=== PATIENT | male | born 1950 | race Caucasian/White ===

== ENCOUNTER 2018-02-07 13:43 | Inpatient (IN) ==
[2018-02-07] MEDS ORDERED: Isovue-370 500 ML INFUS..BTL IV ONE (14:00)
--- NOTE | 2018-02-07 14:10 | Emergency Department Note ---
Disposition Clinical Impression: Swelling of left lower extremity DVT of lower extremity, bilateral Qualifiers: Affected thrombotic vein of extremity: unspecified vein of extremity Chronicity : unspecified Qualified Code(s): I82.403 - Acute embolism and thrombosis of unspecified deep veins of lower extremity, bilateral Disposition: Admitted As Inpatient Condition: Good [facility]errals: [facility] [Non-Partnered Physician] - Forms: ED Satisfaction Letter, Work/School Release Time of Disposition: 16:08 General Adult HPI - General Chief complaint: ED General Medical Stated complaint: DVT Time Seen by Provider: 02/07/18 13:50 Source: patient Mode of arrival: EMS Limitations: no limitations Nursing Notes Reviewed: Yes Vital Signs Reviewed: Yes - History of Present Illness HPI Narrative: Patient is a 67-year-old male that presents the emergency department via EMS from the [place] for DTs and bilateral lower extremities. Patient states that he began having left lower extremity pain approximately one week ago. States that there has been increased swelling and discoloration to the leg over this time period. He states that his pain would be better if he elevated his legs and worse when he gets up and moves around. Patient does state that he has been on anticoagulation for approximately 5 years. States that he had his Eliquis recently changed proximally 2-2-1/2 weeks ago and is now on a different blood thinner but is unable to articulate which blood thinner he is on. Patient denies any blood in his stool or urine at this time. 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 Pain Scale: 6 - Related Data Allergies Allergy/AdvReac Type Severity Reaction Status Date / Time No Known Allergies Allergy Verified 02/07/18 13:50 All systems ED: reviewed and negative except as stated. Cardiovascular: Denies: chest pain Respiratory: Denies: dyspnea Gastrointestinal: Denies: abdominal pain, melena, hematochezia Musculoskeletal: Reports: other (Leg pain) Integumentary: Reports: other (Leg discoloration on the left) Past Medical History - Past Medical History Medical history: Reports: DVT Psychiatric history: Reports: no psych history - Social History Smoking Status: Former smoker Smokeless Tobacco Status: No Alcohol use: Reports: occasionally Drug use: Reports: none Physical Exam - General Limitations: no limitations General appearance: alert, in no apparent distress - Head Head exam: atraumatic, normocephalic - Eye Eye exam: Present: normal appearance, EOMI - Neck Neck exam: Present: normal inspection, full ROM, trachea midline - Respiratory Respiratory exam: Present: normal lung sounds bilaterally. Absent: respiratory distress, wheezes - Cardiovascular Cardiovascular exam: Present: regular rate, normal rhythm, normal heart sounds, +S1, +S2 - Abdominal Exam Abdominal exam: Present: soft, Non-Tender, normal bowel sounds - Extremities Exam Extremities exam: Present: other (Patient has significant swelling in the left lower extremity from the top of the thigh to the toes. Patient has discoloration to the thigh. Patient has pulses via Doppler. Pulses are difficult to palpate due to the swelling but are present on Doppler.) - Neurological Exam Neurological exam: Present: alert, oriented X3 - Psychiatric Psychiatric exam: Present: normal affect, normal mood - Skin Skin exam: Present: warm, dry, intact Course Vital Signs Temperature 98.4 F 02/07/18 13:44 Pulse Rate 71 02/07/18 13:44 Respiratory Rate 16 02/07/18 13:44 Blood Pressure 146/94 02/07/18 13:44 O2 Sat by Pulse Oximetry 95 02/07/18 13:44 Temperature 98.4 F 02/07/18 13:44 Pulse Rate 71 02/07/18 13:44 Respiratory Rate 16 02/07/18 13:44 Blood Pressure 146/94 02/07/18 13:44 O2 Sat by Pulse Oximetry 95 02/07/18 13:44 Oxygen Delivery Oxygen Delivery Room Air Medical Decision Making - MDM Narrative Medical decision making narrative: Due the patient presenting with a DVT from the [facility] and laboratory testing already obtained today I do not feel that was necessary to repeat this laboratory testing prior to admission. Due to the patient having such extensive DVT feel that it is necessary to make sure that this patient does not have a pulmonary embolus. A CTA of the chest will be ordered. We will also obtain an EKG. Patient did have an elevated d-dimer at the [place] of 4.60 within normal reference range of 0.11 to 0.53. Patient's creatinine and GFR was reviewed prior to being sent for his CTA of the chest. CT of the chest was negative for acute pulmonary embolus. I called and spoke with the hospitalist and they have accepted the patient to their service. The patient will be started on standard dose heparin for DVTs. Per request of the hospitalist we will obtain additional laboratory testing including a CBC, chemistry and coagulation studies. The patient be admitted to the hospital at this time. - Medical Records Medical records reviewed: Yes I reviewed the patient's medical records. - Lab Data Lab results reviewed: Yes I reviewed the patient's lab results. - Radiology Data Radiology results reviewed: Yes I reviewed the patient's radiology results. - EKG Data EKG #1 EKG attestation: Yes I reviewed and interpreted this EKG. EKG results narrative: EKG showed a sinus rhythm at a rate of 71 bpm, CA interval of 170, QRS duration 13, QTC of 406. There is no evidence of STEMI on EKG. This was compared to previous EKG on 05/10/11 which showed a sinus rhythm at 78 beats per minute. Attestation Statement - Attestation Attestation: I examined this patient and my medical decision-making was reviewed with the Resident Physician, Dr. Rucker. I agree with the documented findings, disposition and treatment plan as described except to the extent set forth below. Patient is a 67-year-old white male with a prior history of DVTs on anticoagulants who is sent to us from the [facility] today by EMS for newly diagnosed bilateral lower chimneys DVTs. Patient began having symptoms in the left lower extremity approximately one week ago involving significant soft tissue swelling and generalized pain. Patient had no history of falls or trauma. Bilateral lower extremity Dopplers were obtained at the [facility], these percent I report and disc with the patient showing extensive clot burden in both lower extremities worse on the left than the right. Patient reports he does have a IVC filter in place. He is denying any lightheadedness near-syncope or syncopal episodes, no chest pain palpitations or shortness of breath. Patient arrived hemodynamically stable I agree with patient's physical exam findings as documented. He is in no acute distress on arrival. Patient has pulses by Doppler which were obtained due to significant soft tissue swelling. Patient was sent with all of his labs from just prior to arrival including coags , so no repeat labs were drawn from the emergency department. We did obtain an EKG on arrival which was sinus rhythm with no acute changes. Patient was also sent for CTA to rule out PE due to his extensive clot burden. CT scan was negative for PE. Heparin was started on the patient and patient will be admitted for extensive bilateral lower extremity DVTs. Case was discussed with hospitalist who accepted patient for admission and patient has remained hemodynamically stable and in no acute distress on the ED.
[2018-02-07] MEDS ORDERED: *HR* Heparin 5,000 UNIT/ML VIAL IVP PRN (15:55)
[2018-02-07] MEDS ORDERED: *HR* Heparin 5,000 UNIT/ML VIAL IVP ONE (15:55)
[2018-02-07] MEDS ORDERED: 0.9 % Sodium Chloride 1,000 ML ONE (16:37)
[2018-02-07] MEDS: Heparin 25,000 UNIT/500 ML D5W 25,000 UNIT/500 ML BAG IVC SCH (16:40)
[2018-02-07 16:45] LABS: Basophils % 0.2 %; Eosinophils # 0.1 K/mcL (0.0-0.6); Eosinophils % 1.4 %; Hematocrit 38.2 % (37.5-50.1); Hemoglobin 12.8 g/dL (12.9-16.9); Immature Granulocytes % 0.4 % (0-4); Lymphocytes # 1.8 K/mcL (0.6-4.6); Lymphocytes % 17.8 %; Mean Corpuscular HGB Conc 33.5 g/dL (31.6-35.5); Mean Corpuscular Hemoglobin 31.8 pg (28.0-33.3); Mean Corpuscular Volume 94.8 fL (83.0-100.0); Mean Platelet Volume 9.8 fL (9.4-12.4); Monocytes # 0.9 K/mcL (0.0-1.3); Monocytes % 8.3 %; Neutrophils # 7.3 K/mcL (1.6-8.9); Platelet Count 317 K/mcL (140-400); Red Blood Count 4.03 M/mcL (4.19-5.50); Red Cell Distribution Width 12.2 % (11.5-14.5); Segmented Neutrophils % 71.9 %
[2018-02-07 16:56] LABS: BUN/Creatinine Ratio 26 (6-26); Blood Urea Nitrogen 22 mg/dL (8-23); Calcium 9.5 mg/dL (8.6-10.3); Carbon Dioxide 28 mEq/L (23-29); Chloride 100 mEq/L (98-107); Glucose 112 mg/dL (70-105); Osmolality,Calculated 284 (280-300); Potassium 3.8 mEq/L (3.5-5.1); Sodium 135 mEq/L (136-145); eGFR For African Americans > 60 (> 60); eGFR For Non-African Americans > 60 (> 60)
[2018-02-07 16:59] LABS: INR 2.1; Prothrombin Time 23.5 Seconds (9.4-12.1)
[2018-02-07 17:02] LABS: Activated Partial Thrombo Time 30.2 Seconds (26.0-36.0)
[2018-02-07] MEDS ORDERED: traMADol 50 MG TABLET PO PRN (21:44)
[2018-02-07] MEDS ORDERED: Acetaminophen 325 MG TABLET PO PRN (21:44)
[2018-02-07] MEDS ORDERED: Naloxone 0.4 MG/ML INJ IVP PRN (21:44)
--- NOTE | 2018-02-07 21:56 | Internal Med History&Physical ---
<Cas Mar - Last Filed: 02/07/18 22:34> Date of Encounter: 02/07/18 Time of Encounter: 21:48 Internal Medicine - H&P: HPI Admitted From: Home Plans for Post Hospital Care: Home History of present illness: Patient is a 67-year-old male that presents the emergency department via EMS from [place] for DVTs of bilateral lower extremities. Patient states that he began having left lower extremity pain approximately one week ago. States that there has been increased swelling and discoloration to the leg over this time period. He states that his pain would be better if he elevated his legs and worse when he gets up and moves around. Patient does state that he has been on anticoagulation for approximately 5 years. States that he had his Eliquis dose has been increased from 2.5 mg BID to 5 mg BID by a physician of [place] proximally 2 weeks ago. Patient denies any blood in his stool or urine at this time. 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 Patient is very concerned that his leg swelling has not improved with treatment, he also recommended to see the vascular surgery. At the ED, his vital signs were stable. Vital signs revealed cerebellar pleuritic INR at 2.1. He was admitted for further management. Past Med Surg Social Fam HX - Past Medical History Medical history: DVT Psychiatric history: no psych history - Social History Smoking Status: Former smoker Smokeless Tobacco Status: No Alcohol use: occasionally Drug use: none Internal Medicine - H&P: Meds Apixaban [Eliquis] 5 mg PO BID 02/07/18 [History] Calcium Carbonate/Vitamin D3 [Calcium 500-Vit D3 200 Caplet] 2 tab PO DAILY [History] Carbamide Peroxide [Ear Drops] 2 drop OT BID 02/07/18 [History] Cholecalciferol (Vitamin D3) [Vitamin D] 1,000 unit PO DAILY 02/07/18 [History] [place]-3/Dha/Epa/Fish Oil [Fish Oil 1,000 mg Softgel] 2 tab PO DAILY 02/07/18 [ History] Tamsulosin HCl [Flomax] 0.4 mg PO HS 02/07/18 [History] 3 Allergy/AdvReac Type Severity Reaction Status Date / Time No Known Allergies Allergy Verified 02/07/18 13:50 All Systems PM: A 10-system review of systems was performed and is negative for pertinent findings except as documented above in the HPI. Review of systems: REVIEW OF SYSTEMS: CONSTITUTIONAL: No weight loss, fever, chills, weakness or fatigue. HEENT: Eyes: No visual loss, blurred vision, double vision or yellow sclerae. Ears, Nose, Throat: No hearing loss, sneezing, congestion, runny nose or sore throat. SKIN: No rash or itching. CARDIOVASCULAR: No chest pain, chest pressure or chest discomfort. No palpitations or edema. RESPIRATORY: No shortness of breath, cough or sputum. GASTROINTESTINAL: No anorexia, nausea, vomiting or diarrhea. No abdominal pain or blood. GENITOURINARY: No dysuria, urgency, or frequency. NEUROLOGICAL: No headache, dizziness, syncope, paralysis, ataxia, numbness or tingling in the extremities. No change in bowel or bladder control. MUSCULOSKELETAL: see HPI. HEMATOLOGIC: No anemia, bleeding or bruising. LYMPHATICS: No enlarged nodes. No history of splenectomy. PSYCHIATRIC: No history of depression or anxiety. ENDOCRINOLOGIC: No reports of sweating, cold or heat intolerance. No polyuria or polydipsia. - Constitutional Vitals: Temp Pulse Resp BP Pulse Ox 98.4 F 64 16 116/73 98 02/07/18 19:12 02/07/18 19:12 02/07/18 19:12 02/07/18 19:12 02/07/18 19:12 General appearance: Present: A&O X 3 Exam: PHYSICAL EXAMINATION: GENERAL APPEARANCE: The patient is alert, oriented and in no acute distress. HEENT: Head is normocephalic. The sinuses are nontender. Pupils are equal and reactive. The nares are patent. Oropharynx clear without lesions. NECK: Supple without lymphadenopathy. HEART: Regular rate and rhythm. LUNGS: No crackles or wheezes are heard. ABDOMEN: Soft, nontender, nondistended with good bowel sounds heard. Inguinal area is normal. EXTREMITIES: left leg 2+ pitting edema. NEUROLOGICAL: Gross nonfocal. SKIN: Warm and dry without any rash. Internal Med - H&P Results - Labs CBC & Chem 7: 02/07/18 16:20 02/07/18 16:20 - Assessment and plan (1) DVT of lower extremity, bilateral Current Visit: Yes Status: Acute Assessment and plan: 67 male with history of DVT status post IVC filter placement presented with bilateral swelling Legs. He is on adequate this for the last 5 years and has been compliant with medications. His INR at ED was 2.1. - Patient has been adequately treated for DVT, Unclear why he had another DVT on the left leg, new DVT/old DVT? He may need hypercoagulation workup. - He also has IVC filter, CT chest no PE. - He is on heparin drip. I am not sure that Eliquis is the right medication for his DVT. Hold Eliquids for now - We will consult vascular surgery/ Hemotology in the morning. Qualifiers: Affected thrombotic vein of extremity: unspecified vein of extremity Chronicity: unspecified Qualified Code(s): I82.403 - Acute embolism and thrombosis of unspecified deep veins of lower extremity, bilateral (2) BPH (benign prostatic hyperplasia) Current Visit: No Status: Chronic Assessment and plan: -Continue home medication. Qualifiers: Lower urinary tract symptom presence: symptoms absent Qualified Code(s): N40.0 - Benign prostatic hyperplasia without lower urinary tract symptoms - Time Spent With Patient Total time spent is greater than 50% in coordination of care (as documented) at patient's floor/unit and/or counseling patient: Greater than 35 minutes <Tessa Cantrell - Last Filed: 02/07/18 23:46> Date of Encounter: 02/07/18 Internal Medicine - H&P: HPI History of present illness: Mr. Mckinney is a 67 year old male All Systems PM: A 10-system review of systems was performed and is negative for pertinent findings except as documented above in the HPI. - Constitutional Vitals: Temp Pulse Resp BP Pulse Ox 98.4 F 65 16 111/69 96 02/07/18 22:37 02/07/18 22:37 02/07/18 22:37 02/07/18 22:37 02/07/18 22:37 Internal Med - H&P Results - Labs CBC & Chem 7: 02/07/18 16:20 02/07/18 16:20 - Attending Attestation I examined this patient and my medical decision-making was reviewed with the Resident Physician. I agree with the documented findings, disposition and treatment plan as described except to the extent set forth below. - Time Spent With Patient Total time spent is greater than 50% in coordination of care (as documented) at patient's floor/unit and/or counseling patient:
[2018-02-07] MEDS: *HR* Heparin 5,000 UNIT/ML VIAL IVP PRN (23:18)
[2018-02-08 05:36] LABS: Basophils % 0.4 %; Eosinophils # 0.4 K/mcL (0.0-0.6); Eosinophils % 4.1 %; Hemoglobin 11.4 g/dL (12.9-16.9); Immature Granulocytes % 0.6 % (0-4); Lymphocytes % 23.8 %; Mean Corpuscular HGB Conc 33.5 g/dL (31.6-35.5); Mean Corpuscular Hemoglobin 31.3 pg (28.0-33.3); Mean Corpuscular Volume 93.4 fL (83.0-100.0); Mean Platelet Volume 9.9 fL (9.4-12.4); Monocytes # 0.9 K/mcL (0.0-1.3); Monocytes % 10.5 %; Neutrophils # 5.1 K/mcL (1.6-8.9); Platelet Count 260 K/mcL (140-400); Red Blood Count 3.64 M/mcL (4.19-5.50); Red Cell Distribution Width 12.5 % (11.5-14.5); Segmented Neutrophils % 60.6 %
[2018-02-08 06:25] LABS: BUN/Creatinine Ratio 29 (6-26); Blood Urea Nitrogen 25 mg/dL (8-23); Carbon Dioxide 20 mEq/L (23-29); Chloride 103 mEq/L (98-107); Glucose 121 mg/dL (70-105); Osmolality,Calculated 286 (280-300); Potassium 3.6 mEq/L (3.5-5.1); Sodium 135 mEq/L (136-145); eGFR For African Americans > 60 (> 60); eGFR For Non-African Americans > 60 (> 60)
--- NOTE | 2018-02-08 08:17 | Internal Med Progress Note ---
Date of Encounter: 02/08/18 Time of Encounter: 08:14 - Assessment and plan (1) DVT of lower extremity, bilateral Current Visit: Yes Status: Acute Assessment and plan: Bilateral venous [facility]pplers of [facility] on 02[facility]18 revealed RLE nonacute occlusive thrombus in the right femoral right popliteal and occlusive thrombus within the right posterior tibial vein, LLE venous Doppler revealed extensive LLE DVT throughout the left extremity extending superiorly into the common femoral vein Pulses present bilaterally with Doppler. He has IVC filter CTA chest with no PE Hematology/oncology see patient Continue with heparin drip Qualifiers: Affected thrombotic vein of extremity: unspecified vein of extremity Chronicity: unspecified Qualified Code(s): I82.403 - Acute embolism and thrombosis of unspecified deep veins of lower extremity, bilateral (2) BPH (benign prostatic hyperplasia) Current Visit: No Status: Chronic Assessment and plan: Cont home medications Qualifiers: Lower urinary tract symptom presence: symptoms absent Qualified Code(s): N40.0 - Benign prostatic hyperplasia without lower urinary tract symptoms - Time Spent With Patient Total time spent is greater than 50% in coordination of care (as documented) at patient's floor/unit and/or counseling patient: - Subjective Interval history: This patient is new to me, I did review records. Denies any CP or SOB, no complaints of pain in legs. Patient is NPO at this time pending vascular evaluation - Constitutional Vitals: Temp Pulse Resp BP Pulse Ox 97.7 F 53 19 112/69 99 02/08/18 06:47 02/08/18 06:47 02/08/18 06:47 02/08/18 06:47 02/08/18 06:47 General appearance: Present: A&O X 3 - Head Head exam: Present: atraumatic, normocephalic - Eye Eye exam: Present: PERRL, conjuntiva pink, sclera anicteric Pupils: Present: PERRL - Neck Neck exam general surgery: Present: supple, trachea midline. Absent: lymphadenopathy - Respiratory Respiratory exam: Present: CTAB. Absent: accessory muscle use, rales, rhonchi, wheezes - Cardiovascular Cardiovascular exam: Present: RRR, +S1, +S2. Absent: diastolic murmur, gallop, rubs, systolic murmur - GI/Abdominal GI/Abdominal exam: Present: normal bowel sounds, soft, no peritoneal signs. Absent: distended, tenderness - Extremities Exam Extremities exam: Present: pedal edema, warm, radial pulses palpable and symmetrical. Absent: calf tenderness, cyanotic - Neurological Exam Neurological exam: Present: CN II-XII intact, oriented X3, no focal deficits. Absent: pronater drift, facial droop, speech deficit - Skin Skin exam: Present: dry, intact Internal Medicine: Result - Labs CBC & Chem 7: 02/08/18 05:17 02/08/18 05:17 Labs: Short CBC 02/08/18 Range/Units 05:17 WBC 8.5 (4.3-11.1) K/mcL Hgb 11.4 L (12.9-16.9) g/dL Hct 34.0 L (37.5-50.1) % Plt Count 260 (140-400) K/mcL Neutrophils # 5.1 (1.6-8.9) K/mcL BMP 02/08/18 05:17 Sodium 135 L Potassium 3.6 Chloride 103 Carbon Dioxide 20 L BUN 25 H Creatinine 0.86 Glucose 121 H Calcium 9.0 - ABG Interpretation ABG results: PT/INR, D-dimer PT 23.5 Seconds (9.4-12.1) H 02/07/18 16:20 Consult Discharge Plan - Plan Referrals: CHARU,PCP [Primary Care Provider] - 02/21/18 11:30 am
[2018-02-08] MEDS: Cholecalciferol (D-3) 1,000 UNIT TABLET PO SCH (08:54)
[2018-02-08] MEDS: Calcium 500-Vit D3 PO SCH (08:55)
[2018-02-08] MEDS: Heparin 25,000 UNIT/500 ML D5W 25,000 UNIT/500 ML BAG IVC SCH (12:44)
[2018-02-08] MEDS: *HR* Heparin 5,000 UNIT/ML VIAL IVP PRN ×2 (12:46→20:19)
--- NOTE | 2018-02-08 14:43 | Oncology Inp Consult Note ---
<Chelsea Fuller - Last Filed: 02/08/18 14:32> Date of Encounter: 02/08/18 Time of Encounter: 13:00 Assessment and Plan (1) DVT of lower extremity, bilateral Status: Acute Assessment and plan: Bilateral venous dopplers at [facility] on 02/07/18 revealed RLE non-occlusive thrombus in the right femoral, right popliteal and occlusive thrombus within the right posterior tibial vein, LLE venous doppler revealed extensive LLE DVT throughout the left extremity extending superiorly into the common femoral vein. History as detailed in HPI, it is unclear as to whether patient has failed Eliquis therapy given his recent hospitalization with reported missed doses during this time. Dr. Reno discussed options which include keeping Eliquis at increased dosage or changing to Xarelto therapy with similar mechanism of action. Recommendation made to change therapy to Xarelto 15 mg twice daily with food for 21 days followed by 20 mg once daily with food. Primary team may change therapy when desired. Kidney function normal at this time. Given patients history of multiple provoked DVT's, he would benefit from indefinite anticoagulation. Thrombophilia workup may be discussed on an outpatient basis if desired, positive or negative thrombophilia workup would not necessary change treatment goal considering patient needing AC lifelong as tolerated at this time. He was given the option to follow up with [place] assistant plant manager but already established with [facility] assistant plant manager in [place]. Please refer to Dr. Reno's attestation below for additional details. Qualifiers: Affected thrombotic vein of extremity: unspecified vein of extremity Chronicity: unspecified Qualified Code(s): I82.403 - Acute embolism and thrombosis of unspecified deep veins of lower extremity, bilateral - Data of Consult Patient: new to practice Consult date: 02/08/18 Requesting Physician: Quique Lindsay MD [facility] - Consult Narrative Reason for consult: BLE DVT History of present illness: Mr. 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 Patient reports history of at least 3 episodes of provoked RLE DVT following hip surgeries and no prior history of LLE DVT. He has been on AC for about 5 years, he had taken coumadin some time during this period as well. Patient does have a Sims filter placed years ago. He reports recent hospitalization a few weeks ago at the [facility] for UTI and weakness. He reports he had missed doses of his Eliquis during this time. His history is slightly unclear from this point but apparently this led to questioning of his dosage as he was taking decreased dose of 2.5 mg PO BID. He apparently followed up with a assistant plant manager following his hospitalization who recommended he be placed on Eliquis 5 mg PO BID. He at this time did not have any new PE or DVT. Shortly following his dosage increase he began experiencing LLE pain and edema which eventually led to his presentation to [facility]. Bilateral venous dopplers at [facility] on revealed RLE non-occlusive thrombus in the right femoral, right popliteal and occlusive thrombus within the right posterior tibial vein, LLE venous doppler revealed extensive LLE DVT throughout the left extremity extending superiorly into the common femoral vein. He was subsequently transferred to [facility] for further care. Chest CTA with no evidence of PE. He is on a heparin gtt Past Med Surg Social Fam HX - Past Medical History Medical history: DVT Psychiatric history: no psych history - Social History Smoking Status: Former smoker Smokeless Tobacco Status: No Alcohol use: occasionally Drug use: none Medications and Allergies Apixaban [Eliquis] 5 mg PO BID 02/07/18 [History] Calcium Carbonate/Vitamin D3 [Calcium 500-Vit D3 200 Caplet] 2 tab PO DAILY [History] Carbamide Peroxide [Ear Drops] 2 drop OT BID 02/07/18 [History] Cholecalciferol (Vitamin D3) [Vitamin D] 1,000 unit PO DAILY 02/07/18 [History] [place]-3/Dha/Epa/Fish Oil [Fish Oil 1,000 mg Softgel] 2 tab PO DAILY 02/07/18 [ History] Tamsulosin HCl [Flomax] 0.4 mg PO HS 02/07/18 [History] 3 Allergy/AdvReac Type Severity Reaction Status Date / Time No Known Allergies Allergy Verified 02/07/18 13:50 Constitutional: Present: fatigue, weakness. Absent: anorexia, chills, fever(s) Eyes: Absent: change in vision Nose, mouth and throat: Absent: dysphagia Cardiovascular: Absent: chest pain, irregular heart rhythm, palpitations Respiratory: Absent: cough, dyspnea, hemoptysis Gastrointestinal: Absent: abdominal pain, change in bowel habits, hematemesis, melena, nausea Additional comments: denies dysuria or hematuria Musculoskeletal: Present: muscle weakness Integumentary: Absent: wounds Neurological: Absent: focal weakness, frequent falls Hematologic/Lymphatic: Present: as per HPI Oncology - Exam - Constitutional Vitals: Temp Pulse Resp BP Pulse Ox 98.1 F 58 18 129/87 98 02/08/18 11:24 02/08/18 11:24 02/08/18 11:24 02/08/18 11:24 02/08/18 11:24 General appearance: cooperative, no acute distress, no febrile - Head Head exam: Present: atraumatic - ENT ENT exam: Present: mucous membranes moist - Respiratory Respiratory exam: Present: CTAB. Absent: respiratory distress - Cardiovascular Cardiovascular exam: Present: RRR, +S1, +S2 - GI/Abdominal GI/Abdominal exam: Present: normal bowel sounds, soft. 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 - Neurological Exam Neurological exam: Present: alert, oriented X3, no focal deficits, strengths equal and symetr throughout - Psychiatric Psychiatric exam: Present: normal affect, normal mood - Skin Skin exam: Present: dry, intact, normal color, warm Oncology - Results Labs: Short CBC 02/08/18 Range/Units 05:17 WBC 8.5 (4.3-11.1) K/mcL Hgb 11.4 L (12.9-16.9) g/dL Hct 34.0 L (37.5-50.1) % Plt Count 260 (140-400) K/mcL Neutrophils # 5.1 (1.6-8.9) K/mcL BMP 02/08/18 05:17 Sodium 135 L Potassium 3.6 Chloride 103 Carbon Dioxide 20 L BUN 25 H Creatinine 0.86 Glucose 121 H Calcium 9.0 Consult Discharge Plan - Plan [facility]errals: [facility] [Primary Care Provider] - 02/21/18 11:30 am <Mervin Bell - Last Filed: 02/08/18 16:32> Date of Encounter: 02/08/18 - Data of Consult Requesting Physician: Quique Lindsay MD Primary Care Provider: [facility] - Consult Narrative History of present illness: Patient may be switched to xarelto, patient reports worse swelling after eliquis was increased to 5 BID. He was hospitalized with UTI and also reports missing few doses of eliquis prior to his doctors switching him to 5 mg BID I examined this patient and my medical decision-making was reviewed with the Advanced Practice Nurse, Chelsea Fuller. I agree with the documented findings, disposition and treatment plan as described except to the extent set forth below. Oncology - Exam - Constitutional Vitals: Temp Pulse Resp BP Pulse Ox 97.8 F 61 18 119/73 96 02/08/18 15:21 02/08/18 15:21 02/08/18 15:21 02/08/18 15:21 02/08/18 15:21 Oncology - Results Labs: Short CBC 02/08/18 Range/Units 05:17 WBC 8.5 (4.3-11.1) K/mcL Hgb 11.4 L (12.9-16.9) g/dL Hct 34.0 L (37.5-50.1) % Plt Count 260 (140-400) K/mcL Neutrophils # 5.1 (1.6-8.9) K/mcL BMP 02/08/18 05:17 Sodium 135 L Potassium 3.6 Chloride 103 Carbon Dioxide 20 L BUN 25 H Creatinine 0.86 Glucose 121 H Calcium 9.0
[2018-02-09] MEDS: Heparin 25,000 UNIT/500 ML D5W 25,000 UNIT/500 ML BAG IVC SCH (01:33)
[2018-02-09 02:15] LABS: Basophils % 0.3 %; Eosinophils # 0.4 K/mcL (0.0-0.6); Eosinophils % 4.2 %; Hematocrit 34.4 % (37.5-50.1); Hemoglobin 11.7 g/dL (12.9-16.9); Immature Granulocytes % 0.6 % (0-4); Lymphocytes # 2.6 K/mcL (0.6-4.6); Lymphocytes % 29.7 %; Mean Corpuscular Hemoglobin 31.5 pg (28.0-33.3); Mean Corpuscular Volume 92.5 fL (83.0-100.0); Mean Platelet Volume 9.5 fL (9.4-12.4); Monocytes # 0.8 K/mcL (0.0-1.3); Monocytes % 9.7 %; Neutrophils # 4.8 K/mcL (1.6-8.9); Platelet Count 314 K/mcL (140-400); Red Blood Count 3.72 M/mcL (4.19-5.50); Red Cell Distribution Width 12.5 % (11.5-14.5); Segmented Neutrophils % 55.5 %
[2018-02-09 02:34] LABS: BUN/Creatinine Ratio 21 (6-26); Blood Urea Nitrogen 17 mg/dL (8-23); Calcium 8.9 mg/dL (8.6-10.3); Carbon Dioxide 27 mEq/L (23-29); Chloride 104 mEq/L (98-107); Glucose 117 mg/dL (70-105); Osmolality,Calculated 289 (280-300); Potassium 3.6 mEq/L (3.5-5.1); Sodium 138 mEq/L (136-145); eGFR For African Americans > 60 (> 60); eGFR For Non-African Americans > 60 (> 60)
[2018-02-09] MEDS: Cholecalciferol (D-3) 1,000 UNIT TABLET PO SCH (09:10)
[2018-02-09] MEDS: Calcium 500-Vit D3 PO SCH (09:11)
[2018-02-09] MEDS: *HR* Rivaroxaban 15 MG TABLET PO SCH ×2 (12:25→20:09)
--- NOTE | 2018-02-09 15:11 | Vascular/Endovasc Consult Note ---
Date of Encounter: 02/09/18 Time of Encounter: 14:15 Assessment and Plan (1) DVT of lower extremity, bilateral Status: Acute The pathophsyiology and natural history of deep vein thrombosis was discussed with the patient and all questions were answered. The patient has had recurrent deep vein thrombosis during the last 5 years. He has an inferior vena cava filter in place. He was previously treated with Coumadin and then was transitioned to Eliquis. He reports that he ercently missed 2 doses of Eliquis and has now developed an acute deep vein thrombosis. He has had significant improvement since admission. Agree with Xarelto for anticaogulation. He has no signs or symptoms of phelgmasia or limb compromise. There is no indication for thrombectomy at this time. Qualifiers: Affected thrombotic vein of extremity: unspecified vein of extremity Chronicity: unspecified Qualified Code(s): I82.403 - Acute embolism and thrombosis of unspecified deep veins of lower extremity, bilateral - History of Present Illness Consult date: 02/09/18 Requesting physician: [facility] Consult reason: Recurrent deep vein thrombosis Chief complaint: Leg pain and swelling History of present illness: Mr. Mckinney is a 67 year old male with a history of recurrent venous thromboembolism. He previously developed deep vein thrmobosis approximately 5 years ago. He states that he was placed on Coumadin, but was later switched to Eliquis. He also reports that he had an IVC filter placed. The patient reports that he developed a urinary tract infectino and was seen at the [facility]. He reports that his anticoagulation was held for two doses and then he developed left leg pain and swelling. He underwent a venous duplex and was found to have an acute DVT. He was admitted to [facility] and start on heparin. The patient reoprts that his leg is now feeling better and his swelling has decreased. He denies any chest pain or shortness of breath. Past Med Surg Social Fam HX - Past Medical History Medical history: DVT Psychiatric history: no psych history - Social History Smoking Status: Former smoker Smokeless Tobacco Status: No Alcohol use: occasionally Drug use: none - Family History Mother Living Status: Hx Family Cardiac Disorders: Yes Father Living Status: Hx Family Cardiac Disorders: Yes Medications and Allergies Calcium Carbonate/Vitamin D3 [Calcium 500-Vit D3 200 Caplet] 2 tab PO DAILY [History] Carbamide Peroxide [Ear Drops] 2 drop OT BID 02/07/18 [History] Cholecalciferol (Vitamin D3) [Vitamin D3] 1,000 unit PO DAILY 02/07/18 [History] [place]-3/Dha/Epa/Fish Oil [Fish Oil 1,000 mg Softgel] 2 tab PO DAILY 02/07/18 [ History] Tamsulosin HCl [Flomax] 0.4 mg PO HS 02/07/18 [History] Rivaroxaban [Xarelto] 15 mg PO BID #40 tablet 02/10/18 [Rx] Rivaroxaban [Xarelto] 15 mg PO BID 20 Days #40 tablet 02/10/18 [Rx] Rivaroxaban [Xarelto] 20 mg PO DAILY #60 tablet 02/10/18 [Rx] 3 Allergy/AdvReac Type Severity Reaction Status Date / Time No Known Allergies Allergy Verified 02/07/18 13:50 All Systems Review: The remainder of the systems were reviewed and are negative - Constitutional Constitutional: no chills, no fever(s) - Cardiovascular Cardiovascular: no chest pain at rest, no dyspnea at rest - Gastrointestinal Gastrointestinal: no abdominal pain - Neurological Neurological: no focal weakness, no numbness Exam Vital Signs, Last 4 Hours Temp Pulse Resp BP Pulse Ox 02/09/18 14:43 97.6 F 86 16 157/71 97 02/09/18 14:39 98.5 F 90 16 121/75 98 02/09/18 11:15 98.1 F 74 110/71 97 General: Present: Conversant, No Apparent Distress HEENT: Present: Atraumatic, Trachea midline, Pupils equal Neck: Absent: JVD, Lymphadenopathy, Left Carotid bruit, Right Carotid bruit Cardiac: Present: Reg Rate and Rhythm, Normal S1 and S2 Lungs: Present: Normal Breath Sounds, No Wheeze, Rales, Rhonchi Neuro: Present: Alert and responsive, No focal deficits noted, Cranial nerves grossly intact, Motor nerves grossly intact, Sensory nerves grossly intact Abdomen: Present: Soft, Non-tender. Absent: Masses Vascular: Present: Normal capillary refill, Pulse, normal, Edema (1+ left lower extremity edema). Absent: Clubbing, Cyanosis Skin: Present: No rashes noted on visualized skin Consult Discharge Plan - Plan Instructions: Peripheral Vascular Disorders (DC) [facility]errals: [facility] [Primary Care Provider] - 02/21/18 11:30 am Prescriptions: Rivaroxaban [Xarelto] 15 mg PO BID #40 tablet Rivaroxaban [Xarelto] 15 mg PO BID 20 Days #40 tablet Rivaroxaban [Xarelto] 20 mg PO DAILY #60 tablet
--- NOTE | 2018-02-09 21:39 | Internal Med Progress Note ---
Date of Encounter: 02/09/18 Time of Encounter: 15:00 - Assessment and plan (1) DVT of lower extremity, bilateral Current Visit: Yes Status: Acute Assessment and plan: [facility] on [facility]18 revealed RLE nonacute occlusive thrombus in the right femoral right popliteal and occlusive thrombus within the right posterior tibial vein, LLE venous Doppler revealed extensive LLE DVT throughout the left extremity extending superiorly into the common femoral vein Pulses present bilaterally with Doppler. He has IVC filter CTA chest with no PE Hematology/oncology see patient- Heparin gtt stopped and started on Xarelto 15 mg BID per recommendations Seen by vascular surgery no surgical intervention at this time Qualifiers: Affected thrombotic vein of extremity: unspecified vein of extremity Chronicity: unspecified Qualified Code(s): I82.403 - Acute embolism and thrombosis of unspecified deep veins of lower extremity, bilateral (2) BPH (benign prostatic hyperplasia) Current Visit: No Status: Chronic Assessment and plan: Cont home medications Qualifiers: Lower urinary tract symptom presence: symptoms absent Qualified Code(s): N40.0 - Benign prostatic hyperplasia without lower urinary tract symptoms - Time Spent With Patient Total time spent is greater than 50% in coordination of care (as documented) at patient's floor/unit and/or counseling patient: - Subjective Interval history: Patient was seen at bedside and examined earlier today. He denies any pain or discomfort, he feels that his swelling has improved however request to stay overnight, because he feels unsafe walking dt swelling. Will have PT OT eval patient He agrees with plan and will be discharged in am - Constitutional Vitals: Temp Pulse Resp BP Pulse Ox 99.0 F 83 16 133/78 98 02/09/18 18:28 02/09/18 18:28 02/09/18 18:28 02/09/18 18:28 02/09/18 18:28 General appearance: Present: A&O X 3 - Head Head exam: Present: atraumatic, normocephalic - Eye Eye exam: Present: PERRL, conjuntiva pink, sclera anicteric Pupils: Present: PERRL - Neck Neck exam general surgery: Present: supple, trachea midline. Absent: lymphadenopathy - Respiratory Respiratory exam: Present: CTAB. Absent: accessory muscle use, rales, rhonchi, wheezes - Cardiovascular Cardiovascular exam: Present: RRR, +S1, +S2. Absent: diastolic murmur, gallop, rubs, systolic murmur - GI/Abdominal GI/Abdominal exam: Present: normal bowel sounds, soft, no peritoneal signs. Absent: distended, tenderness - Extremities Exam Extremities exam: Present: pedal edema, warm, radial pulses palpable and symmetrical. Absent: calf tenderness, cyanotic - Neurological Exam Neurological exam: Present: CN II-XII intact, oriented X3, no focal deficits. Absent: pronater drift, facial droop, speech deficit - Skin Skin exam: Present: dry, intact Internal Medicine: Result - Labs CBC & Chem 7: 02/09/18 01:54 02/09/18 01:54 Labs: Short CBC 02/09/18 Range/Units 01:54 WBC 8.6 (4.3-11.1) K/mcL Hgb 11.7 L (12.9-16.9) g/dL Hct 34.4 L (37.5-50.1) % Plt Count 314 (140-400) K/mcL Neutrophils # 4.8 (1.6-8.9) K/mcL BMP 02/09/18 01:54 Sodium 138 Potassium 3.6 Chloride 104 Carbon Dioxide 27 BUN 17 Creatinine 0.80 Glucose 117 H Calcium 8.9 - ABG Interpretation ABG results: PT/INR, D-dimer PT 23.5 Seconds (9.4-12.1) H 02/07/18 16:20 Consult Discharge Plan - Plan [facility]errals: [facility] [Primary Care Provider] - 02/21/18 11:30 am
--- NOTE | 2018-02-10 08:22 | Discharge Summary ---
- NOTES TO OUTPATIENT PROVIDER Notes to Outpatient Provider: Follow up with hematology and PCP- Xaralto 15mg BIDfor 21 days then Xarelto 20 mg daily Date of Encounter: 02/10/18 Time of Encounter: 08:19 - Discharge Diagnosis (1) DVT of lower extremity, bilateral Priority: Primary Status: Acute Qualifiers: Affected thrombotic vein of extremity: unspecified vein of extremity Chronicity: unspecified Qualified Code(s): I82.403 - Acute embolism and thrombosis of unspecified deep veins of lower extremity, bilateral (2) BPH (benign prostatic hyperplasia) Priority: Secondary Status: Chronic Qualifiers: Lower urinary tract symptom presence: symptoms absent Qualified Code(s): N40.0 - Benign prostatic hyperplasia without lower urinary tract symptoms Hospital course: Mr. Mckinney is a 67 year old male past medical hx of multiple BLE DVT He has been on AC for about 5 yrs He does have a nani filter. He is presently on Eliquis [facility] He reports he had missed some doses of Eliquis during this stay. He also was taking a decreased dose of Eliquis of 2.5mg BID. He follows with hematology through [facility] who increased dose to 5mg BID. He did not have a PE or DVT during the dosage change. Some time after change he began to experience bilateral lower leg swelling and pain which he went to the [facility] for eval.Bilateral venous dopplers at [facility] on 02/07/18 revealed RLE non-occlusive thrombus in the right femoral, right popliteal and occlusive thrombus within the right posterior tibial vein, LLE venous doppler revealed extensive LLE DVT throughout the left extremity extending superiorly into the common femoral vein. He was subsequently transferred to [facility] for further care. Chest CTA with no evidence of PE. Placed on a heparin gtt- he was seen by hematology and recommended Xarelto 15 mg twice a day for 21 days then Xarelto 20 mg po daily with food. He was also seen by vascular surgery who did not recommend surgery and agreed with Xarelto. He was evaluated by PT/OT dt difficulty ambulating and recommend home health. He was transitioned form heparin to Xarelto. He is to follow up with PCP and hematology which patient verbalized understanding. I reviewed Xarelto instructions with him which he verbalized understanding He is hemodynamically stable at this time and ready for discharge Discharge discussed with: patient - Time Spent with Patient Total time spent providing and/or coordinating discharge services: - Discharge Medications Prescriptions: Rivaroxaban [Xarelto] 15 mg PO BID #40 tablet Rivaroxaban [Xarelto] 15 mg PO BID 20 Days #40 tablet Rivaroxaban [Xarelto] 20 mg PO DAILY #60 tablet Home Medications: Calcium Carbonate/Vitamin D3 [Calcium 500-Vit D3 200 Caplet] 2 tab PO DAILY [History] Carbamide Peroxide [Ear Drops] 2 drop OT BID 02/07/18 [History] Cholecalciferol (Vitamin D3) [Vitamin D3] 1,000 unit PO DAILY 02/07/18 [History] [place]-3/Dha/Epa/Fish Oil [Fish Oil 1,000 mg Softgel] 2 tab PO DAILY 02/07/18 [ History] Tamsulosin HCl [Flomax] 0.4 mg PO HS 02/07/18 [History] Rivaroxaban [Xarelto] 15 mg PO BID #40 tablet 02/10/18 [Rx] Rivaroxaban [Xarelto] 15 mg PO BID 20 Days #40 tablet 02/10/18 [Rx] Rivaroxaban [Xarelto] 20 mg PO DAILY #60 tablet 02/10/18 [Rx] Allergies/Adverse Reactions: 3 Allergy/AdvReac Type Severity Reaction Status Date / Time No Known Allergies Allergy Verified 02/07/18 13:50 Date of admission: 02/08/18 19:22 Primary care physician: [facility]CP [facility] Consults: 02/09/18 08:54 Consult to Physical Therapy [CONS] Routine Comment: Evaluate, develop and implement POC Reason for Consult: has swelling in legs difficulty ambulating Does patient have active BEDREST order?: No Is patient medically & hemodynamically stable?: Yes Patient assessed for mobility or mobilized this visit?: Yes 02/09/18 08:56 Consult to Occupational Therapy [CONS] Routine Comment: Evaluate, develop and implement POC Reason for Consult: swelling Does patient have active BEDREST order?: No Is patient medically & hemodynamically stable?: Yes Patient assessed for mobility or mobilized this visit?: Yes 02/09/18 08:59 Consult to [employer] [CONS] Routine Reason for SW Consult: discharge planning Discharging clinician: Leila Snell Anticipated date of discharge: 04/27/18 - Constitutional Vitals: Temp Pulse Resp BP Pulse Ox 98.3 F 64 17 125/74 97 02/10/18 06:50 02/10/18 06:50 02/10/18 06:50 02/10/18 06:50 02/10/18 06:50 General appearance: Present: A&O X 3 - Head Head exam: Present: atraumatic, normocephalic - Eye Eye exam: Present: PERRL, conjuntiva pink, sclera anicteric Pupils: Present: PERRL - Neck Neck exam general surgery: Present: supple, trachea midline. Absent: lymphadenopathy - Respiratory Respiratory exam: Present: CTAB. Absent: accessory muscle use, rales, rhonchi, wheezes - Cardiovascular Cardiovascular exam: Present: RRR, +S1, +S2. Absent: diastolic murmur, gallop, rubs, systolic murmur - GI/Abdominal GI/Abdominal exam: Present: normal bowel sounds, soft, no peritoneal signs. Absent: distended, tenderness - Extremities Exam Extremities exam: Present: pedal edema, warm, radial pulses palpable and symmetrical. Absent: calf tenderness, cyanotic - Neurological Exam Neurological exam: Present: CN II-XII intact, oriented X3, no focal deficits. Absent: pronater drift, facial droop, speech deficit - Skin Skin exam: Present: dry, intact - Patient Status Disposition: Home, Self-Care Condition: Good Functional capacity at discharge: independent ambulation Overall status at discharge: patient is back to baseline - Discharge Instructions Instructions: Peripheral Vascular Disorders (DC) Follow Up With: [facility] [Primary Care Provider] - 02/21/18 11:30 am - Diet and Activity Activity: resume usual activities as tolerated Diet: advance to your usual diet
[2018-02-10] MEDS: *HR* Rivaroxaban 15 MG TABLET PO SCH (08:28)
[2018-02-10] MEDS: Cholecalciferol (D-3) 1,000 UNIT TABLET PO SCH (08:28)
--- NOTE | 2018-02-10 10:09 | Physician Discharge Referral ---
Home Health/Hosp Referral Info Transfer to: Home Health Attending Provider: Leila Snell Provider in Charge Post Discharge: PCP - Diagnosis (1) DVT of lower extremity, bilateral Priority: Primary Status: Acute (2) BPH (benign prostatic hyperplasia) Priority: Secondary Status: Chronic - Respiratory Orders Smoking Cessation: Smoking cessation has been advised. For more information, call the [place] Tobacco Quit Line at 5-115-YSIE-NOW. - Diet/Nutrition Diet/Nutrition Orders: No Added Salt (SUNDAY) - Activity Activity Orders: Ambulate - Services Needed Following services are medically necessary services: Physical Therapy, Occupational Therapy - Transfer Medications Prescriptions: Rivaroxaban [Xarelto] 15 mg PO BID #40 tablet Rivaroxaban [Xarelto] 15 mg PO BID 20 Days #40 tablet Rivaroxaban [Xarelto] 20 mg PO DAILY #60 tablet Home Medications: Calcium Carbonate/Vitamin D3 [Calcium 500-Vit D3 200 Caplet] 2 tab PO DAILY [History] Carbamide Peroxide [Ear Drops] 2 drop OT BID 02/07/18 [History] Cholecalciferol (Vitamin D3) [Vitamin D3] 1,000 unit PO DAILY 02/07/18 [History] [place]-3/Dha/Epa/Fish Oil [Fish Oil 1,000 mg Softgel] 2 tab PO DAILY 02/07/18 [ History] Tamsulosin HCl [Flomax] 0.4 mg PO HS 02/07/18 [History] Rivaroxaban [Xarelto] 15 mg PO BID #40 tablet 02/10/18 [Rx] Rivaroxaban [Xarelto] 15 mg PO BID 20 Days #40 tablet 02/10/18 [Rx] Rivaroxaban [Xarelto] 20 mg PO DAILY #60 tablet 02/10/18 [Rx] Allergies/Adverse Reactions: 3 Allergy/AdvReac Type Severity Reaction Status Date / Time No Known Allergies Allergy Verified 02/07/18 13:50 Certification: Further, I certify that my clinical findings support that this patient is homebound (i.e. absences from home require considerable and taxing effort and are for medical reasons or scientology services or infrequently or short duration when for other reasons) because: Homebound Reason: Post-surgery restriction and or conditions limit ability to leave home Attestation: My signature below is to certify that this patient is under my care and that I, or nurse practitioner, or a physician's after school program assistant working with me, has a face-to -face encounter with this patient.
[2018-02-10] MEDS: Calcium 500-Vit D3 PO SCH (10:17)
[2018-02-10 10:55] VITALS: BP 123/75
--- NOTE | 2018-02-10 18:15 | Electrocardiograph Report ---
[address] [address] Test Date: 2018-02-07 Pat Name: Arturo Mckinney Department: 102 Room: 3B12 Gender: M [employer]: : [id number] Requested By: [id number] Order Number: [id number] Reading MD: Na Carmona Measurements Intervals [place] Rate: 71 P: 35 KS: 170 QRS: -36 QRSD: 103 T: 28 QT: 383 QTc: 406 Interpretive Statements SINUS RHYTHM WITH OCCASIONAL SUPRAVENTRICULAR PREMATURE COMPLEXES MARKED LEFT AXIS DEVIATION [QRS AXIS < -30] MODERATE VOLTAGE CRITERIA FOR LVH, CONSIDER NORMAL VARIANT Electronically Signed On 02-10-2018 18:14:06 EDT by Na Carmona
== END 2018-02-10 12:25 | disposition home or self-care (01) | DRG 301 ==
LOC: EMEROO 13:43 → 3BNU 13:43
PROVIDERS: ADMIT Pediatrics; ATTEND Pediatrics

== ENCOUNTER 2021-03-18 11:06 | Observation (INO) ==
[2021-03-18 12:11] LABS: Basophils % 0.5 %; Eosinophils # 0.1 K/mcL (0.0-0.6); Hematocrit 29.5 % (37.5-50.1); Hemoglobin 8.5 g/dL (12.9-16.9); Immature Granulocytes % 0.5 % (0-4); Lymphocytes # 1.3 K/mcL (0.6-4.6); Lymphocytes % 16.3 %; Mean Corpuscular HGB Conc 28.8 g/dL (31.6-35.5); Mean Corpuscular Volume 83.3 fL (83.0-100.0); Mean Platelet Volume 10.5 fL (9.4-12.4); Monocytes # 0.5 K/mcL (0.0-1.3); Monocytes % 6.7 %; Neutrophils # 5.9 K/mcL (1.6-8.9); Platelet Count 309 K/mcL (140-400); Red Blood Count 3.54 M/mcL (4.19-5.50); Red Cell Distribution Width 16.2 % (11.5-14.5); White Blood Count 7.9 K/mcL (4.3-11.1)
[2021-03-18 12:28] LABS: Alanine Aminotransferase 8 Units/L (7-52); Albumin 4.1 g/dL (3.5-5.7); Albumin/Globulin Ratio 1.1 (1.1-2.2); Alkaline Phosphatase 60 Units/L (34-104); Aspartate Amino Transferase 14 Units/L (13-39); BUN/Creatinine Ratio 24 (6-26); Bilirubin,Direct 0.1 mg/dL (0.0-0.2); Bilirubin,Indirect 0.3 mg/dL (0.0-1.0); Bilirubin,Total 0.4 mg/dL (0.3-1.0); Blood Urea Nitrogen 25 mg/dL (8-23); Calcium 9.7 mg/dL (8.6-10.3); Carbon Dioxide 23 mEq/L (23-29); Chloride 102 mEq/L (98-107); Globulin 3.6 g/dL (2.4-3.5); Glucose 159 mg/dL (70-105); Osmolality,Calculated 290 (280-300); Potassium 3.8 mEq/L (3.5-5.1); Sodium 136 mEq/L (136-145); Total Protein 7.7 g/dL (6.4-8.9); Troponin I < 0.03 ng/mL (< 0.04); eGFR For African Americans > 60 (> 60); eGFR For Non-African Americans > 60 (> 60)
[2021-03-18 13:54] LABS: Bilirubin,Urine Negative (Negative); Blood,Urine Negative (Negative); Clarity,Urine Clear (Clear); Color,Urine Yellow (Yellow); Glucose,Urine (UA) Normal (Normal); Hyaline Casts,Urine Few per lpf (None Seen); Ketones,Urine Trace mg/dL (Negative); Leukocyte Esterase,Urine Trace (Negative); Mucus,Urine Few per lpf (None-Few); Nitrite,Urine Negative (Negative); PH,Urine 5.5 pH Units (5.0-8.0); Protein,Urine Trace mg/dL (Neg-Trace); RBC,Urine 0-3 per hpf (0-3); Specific Gravity,Urine 1.023 (1.010-1.025); Squamous Epithelial Cell,Urine Few per hpf (None-Few); Urobilinogen,Urine Normal (Normal); WBC,Urine 0-3 per hpf (0-3)
[2021-03-18] MEDS ORDERED: Acetaminophen 325 MG TABLET PO PRN (17:26)
[2021-03-18] MEDS ORDERED: Naloxone 0.4 MG/ML INJ IVP PRN (17:26)
[2021-03-18] MEDS ORDERED: Ondansetron 4 MG/2 ML VIAL IVP PRN (17:26)
[2021-03-18] MEDS ORDERED: Isovue-370 500 ML BOTTLE IVP ONE (18:10)
[2021-03-18] MEDS: Pantoprazole 40 MG VIAL IVP SCH (19:28)
[2021-03-19 04:57] LABS: Basophils % 0.4 %; Eosinophils # 0.2 K/mcL (0.0-0.6); Eosinophils % 2.8 %; Hematocrit 23.5 % (37.5-50.1); Hemoglobin 7.2 g/dL (12.9-16.9); Immature Granulocytes % 0.3 % (0-4); Immature Reticulocyte % 27.1 % (11.0-38.0); Lymphocytes # 1.9 K/mcL (0.6-4.6); Lymphocytes % 26.3 %; Mean Corpuscular HGB Conc 30.6 g/dL (31.6-35.5); Mean Corpuscular Hemoglobin 24.6 pg (28.0-33.3); Mean Corpuscular Volume 80.2 fL (83.0-100.0); Mean Platelet Volume 10.3 fL (9.4-12.4); Monocytes # 0.7 K/mcL (0.0-1.3); Monocytes % 10.2 %; Neutrophils # 4.3 K/mcL (1.6-8.9); Platelet Count 222 K/mcL (140-400); Red Blood Count 2.93 M/mcL (4.19-5.50); Red Cell Distribution Width 16.2 % (11.5-14.5); Retculocyte # 0.03 M/mcL (0.05-0.10); Reticulocyte % 1.2 % (1.6-2.8); White Blood Count 7.1 K/mcL (4.3-11.1)
[2021-03-19 05:22] LABS: % Iron Saturation 7 % (20-55); Alanine Aminotransferase 6 Units/L (7-52); Albumin 3.3 g/dL (3.5-5.7); Albumin/Globulin Ratio 1.2 (1.1-2.2); Alkaline Phosphatase 47 Units/L (34-104); Aspartate Amino Transferase 10 Units/L (13-39); BUN/Creatinine Ratio 22 (6-26); Bilirubin,Direct 0.1 mg/dL (0.0-0.2); Bilirubin,Indirect 0.4 mg/dL (0.0-1.0); Bilirubin,Total 0.5 mg/dL (0.3-1.0); Blood Urea Nitrogen 20 mg/dL (8-23); Carbon Dioxide 26 mEq/L (23-29); Chloride 103 mEq/L (98-107); Globulin 2.8 g/dL (2.4-3.5); Glucose 97 mg/dL (70-105); Iron 20 mcg/dL (65-175); Lactate Dehydrogenase 141 Units/L (140-271); Magnesium 1.8 mg/dL (1.6-2.6); Osmolality,Calculated 285 (280-300); Phosphorous 3.5 mg/dL (2.7-4.5); Potassium 3.7 mEq/L (3.5-5.1); Sodium 136 mEq/L (136-145); Total Protein 6.1 g/dL (6.4-8.9); Transferrin 207 mg/dL (203-362); eGFR For African Americans > 60 (> 60); eGFR For Non-African Americans > 60 (> 60)
[2021-03-19 05:37] LABS: Ferritin 10 ng/mL (20-250)
[2021-03-19 05:43] LABS: Anisocytosis 1+ (Not Present); Hypochromasia Present (Not Present); Poikilocytosis 1+ (Not Present)
[2021-03-19 05:44] LABS: Large Platelets Present (Not Present); Platelet Estimate Normal (Normal)
[2021-03-19] MEDS: Pantoprazole 40 MG VIAL IVP SCH ×2 (05:51→18:08)
[2021-03-19 06:01] LABS: Folate 22.2 ng/mL (3.0-16.0)
[2021-03-19] MEDS ORDERED: 0.9 % Sodium Chloride 250 ML ONE ×2 (12:15→22:40)
[2021-03-19] MEDS ORDERED: *HR* Propofol 200 MG/20 ML VIAL IVP ONE ×2 (14:23→14:44)
[2021-03-19] MEDS ORDERED: Lidocaine -MPF 2% 5 ML VIAL ONE ×2 (14:23→14:24)
[2021-03-19] MEDS ORDERED: SODIUM CHLORIDE/NAHCO3/KCL/PEG 4,000 ML SOLN.RECON PO ONE (17:00)
[2021-03-19 17:04] LABS: Hematocrit 27.2 % (37.5-50.1); Hemoglobin 8.2 g/dL (12.9-16.9)
[2021-03-19 18:11] LABS: Hematocrit 27.6 % (37.5-50.1); Hemoglobin 8.4 g/dL (12.9-16.9)
[2021-03-20 03:18] LABS: Basophils % 0.6 %; Eosinophils # 0.2 K/mcL (0.0-0.6); Eosinophils % 3.1 %; Hematocrit 27.6 % (37.5-50.1); Hemoglobin 8.7 g/dL (12.9-16.9); Immature Granulocytes % 0.5 % (0-4); Lymphocytes # 1.6 K/mcL (0.6-4.6); Lymphocytes % 24.2 %; Mean Corpuscular HGB Conc 31.5 g/dL (31.6-35.5); Mean Corpuscular Hemoglobin 25.7 pg (28.0-33.3); Mean Corpuscular Volume 81.7 fL (83.0-100.0); Mean Platelet Volume 10.5 fL (9.4-12.4); Monocytes # 0.8 K/mcL (0.0-1.3); Monocytes % 12.8 %; Neutrophils # 3.8 K/mcL (1.6-8.9); Platelet Count 207 K/mcL (140-400); Red Blood Count 3.38 M/mcL (4.19-5.50); Red Cell Distribution Width 15.8 % (11.5-14.5); Segmented Neutrophils % 58.8 %; White Blood Count 6.5 K/mcL (4.3-11.1)
[2021-03-20 03:39] LABS: BUN/Creatinine Ratio 19 (6-26); Blood Urea Nitrogen 15 mg/dL (8-23); Calcium 8.4 mg/dL (8.6-10.3); Carbon Dioxide 27 mEq/L (23-29); Chloride 106 mEq/L (98-107); Glucose 96 mg/dL (70-105); Osmolality,Calculated 285 (280-300); Potassium 3.7 mEq/L (3.5-5.1); Sodium 137 mEq/L (136-145); eGFR For African Americans > 60 (> 60); eGFR For Non-African Americans > 60 (> 60)
[2021-03-20] MEDS: Pantoprazole 40 MG VIAL IVP SCH ×2 (06:14→17:38)
[2021-03-20] MEDS ORDERED: *HR* Propofol 200 MG/20 ML VIAL IVP ONE (11:29)
[2021-03-20] MEDS ORDERED: Lidocaine -MPF 2% 5 ML VIAL SQ ONE (11:29)
[2021-03-21] MEDS: Pantoprazole 40 MG VIAL IVP SCH ×2 (05:49→17:25)
[2021-03-21 08:13] LABS: Basophils % 0.3 %; Eosinophils # 0.3 K/mcL (0.0-0.6); Eosinophils % 4.2 %; Hematocrit 27.3 % (37.5-50.1); Hemoglobin 8.4 g/dL (12.9-16.9); Immature Granulocytes % 0.5 % (0-4); Lymphocytes # 1.4 K/mcL (0.6-4.6); Lymphocytes % 21.9 %; Mean Corpuscular HGB Conc 30.8 g/dL (31.6-35.5); Mean Corpuscular Hemoglobin 25.4 pg (28.0-33.3); Mean Corpuscular Volume 82.5 fL (83.0-100.0); Mean Platelet Volume 10.3 fL (9.4-12.4); Monocytes # 0.7 K/mcL (0.0-1.3); Neutrophils # 3.9 K/mcL (1.6-8.9); Platelet Count 192 K/mcL (140-400); Red Blood Count 3.31 M/mcL (4.19-5.50); Segmented Neutrophils % 62.1 %; White Blood Count 6.2 K/mcL (4.3-11.1)
[2021-03-21 08:35] LABS: BUN/Creatinine Ratio 11 (6-26); Blood Urea Nitrogen 10 mg/dL (8-23); Calcium 8.4 mg/dL (8.6-10.3); Carbon Dioxide 23 mEq/L (23-29); Chloride 111 mEq/L (98-107); Glucose 134 mg/dL (70-105); Osmolality,Calculated 289 (280-300); Potassium 3.9 mEq/L (3.5-5.1); Sodium 139 mEq/L (136-145); eGFR For African Americans > 60 (> 60); eGFR For Non-African Americans > 60 (> 60)
[2021-03-22] MEDS: Pantoprazole 40 MG VIAL IVP SCH (05:51)
[2021-03-22 06:52] VITALS: BP 142/69
== END 2021-03-22 11:30 | disposition home health service (06) ==
LOC: 3ANU 11:06 → EMEROOARM 11:06 → SUATTDRO 16:58 → 3ANU 17:29
PROVIDERS: ADMIT Internal Medicine; ATTEND Student in an Organized Health Care Education/Training Program